=== PATIENT | female | born 2005 | race Caucasian/White ===

== ENCOUNTER 2025-02-16 12:29 | Emergency (ER) | payer OTHER, SELFPAY ==
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
[2025-02-16] MEDS: FLUORESCEIN SOD 1 MG/STRIP LEFT EYE (13:04)
[2025-02-16] MEDS: TETRACAINE HCL 0.5% OPHTH SOLN 4 ML BTL LEFT EYE (13:04)
[2025-02-16] MEDS: DACRIOSE EYE IRRIGATION 118 ML BOTTLE 30 ML LEFT EYE (13:04)
[2025-02-16 13:10] VITALS: BP 107/67; PULSE 65; RESP 16; TEMP 36.6; O2SAT 100
[2025-02-16 13:17] LABS: BEDSIDEPREGUCG Negative (Negative); EDUAAPPEAR Clear; EDUABILI 1+ (Negative); EDUABLOOD Negative (Negative); EDUACOLOR1 Amber; EDUAGLUCOSE Negative (Negative); EDUAKETONE 1+ (Negative); EDUALEUKO Negative (Negative); EDUANITRATE Negative (Negative); EDUAPH 5.5; EDUAPROTEIN 2+ (Negative); EDUAUROBILI 0.2
--- OUTSIDE RECORDS SUMMARY | 2025-02-16 14:23 | XMS_ITS | Referral Summary ---
Author Organization [facility] Medical Office Building [address] Address [address] [place] [address] Care Team Providers Care Crewman Main Battle Tank Name Role Phone No, Physician Primary Care Provider [phone] Allergies No known active allergies Medications No known medications Active Problems Problem Noted Date Diagnosed Date Screening for blood disease 05/02/2021 Irregular periods 05/02/2021 Assessment & Plan (05/02/2021 12:13 PM CDT): Condition is uncontrolled/not stable. Continue prescribed medications - risks and usage discussed, seek medical care for new or worsening symptoms. General counseling and advice on contraceptive m anagement 05/02/2021 Screening for cardiovascular condition Annual physical exam 05/02/2021 Assessment & Plan (05/02/2021 12:21 PM CDT): Normal, no abnormal findings. CMP and lipid panel to be obtained today, if applicable. Vaccinations return with vaccination records. Heart healthy diet and exercise advised. Immunizations Immunization Administration Dates Next Due DTaP 05/08/2007, 4,2003,06/28,2003 H1N1 Inj 02/28/2010 HPV, Quadrivalent 06/14/2015,04/12/2015 HPV9 04/29/2016 Hep A, Adult 10/04/2005,03/19/2005 Hep A, Pediatric 10/04/2005,03/19/2005 Hep B Vaccine 2003,2003,2003 Hep B, Adolescent or Pediatric 2003,2002 HiB 08/29/2008, 4,2003,04/18 Hib (HbOC) 05/30/2004, 3,2003,04/18 IPV 05/08/2007, 4,2003,04/18 Influenza LAIV (Nasal) 09/21/2012 Influenza, Live, Intranasal, Quadrivalent 06/14/2015 Influenza, Quadrivalent, Spl it, Preservative Free, Intramuscular 06/02/2019 Influenza, Split 08/03/2007, 6,10/04/2005,09/05,2003,2003 Influenza, Trivalent, IM (MDV) 09/21/2012,2006,10/04/2005 Influenza, Unspecified 04/08/2021(Deferr ed: Patient Refused),06/08/2020(Deferred: Patient Refused) MMR 05/08/2007,05/30/2004,02/15/2004 Meningococcal ACWY, Unspecified 02/21/2014 Meningococcal B, OMV (Bexsero) 06/02/2019,2018 Meningococcal MCV4, Unspecified 04/21/2019,02/21 Pneumococcal Conjugate 7-Valent 09/05/20 04,2003,2003,04/18 Tdap 02/21/2014 Varicella 06/16/2007,02/15/2004 Social History Tobacco Use Types Packs/Day Years Used Date Smoking Tobacco: Never Smokeless Tobacco: Never AUDIT-C Answer Date Recorded Q1: How often do you have a drink containing alc ohol? Never 05/02/2021 Average Number of Drinks Not on file 021 Q3: How often do you have si x or more drinks on one occasion? Never 05/02/2021 PHQ-2 Answer Date Recorded PHQ-2 Total Score (If total score is 3 or more points, staff should administer the PHQ-9) 0 05/02/2021 Personal Safety Answer Date Recorded Have you ever been in or are you currently in a harmful physical or emotional relationship or is someone making you feel afraid or unsafe? 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 Gender Identity Not on file Sexual Orientation Not on file Last Filed Vital Signs Vital Sign Reading Time Taken Comments Blood Pressure 105/52 05/26/2024 2:31 PM CDT Pulse 77 05/26/2024 2:31 PM CDT Temperature 36.9 C (98.4 F) 05/26/2024 2:31 PM CDT Respiratory Rate 15 05/26/2024 2:31 PM CDT Oxygen Saturation 100% 05/26/2024 2:31 PM CDT Inhaled Oxygen Concentration - - Weight 54.4 kg (120 lb) 05/26/2024 2:31 PM CDT Height 168.5 cm (5' 6.34) 05/02/2021 11:38 AM C DT Body Mass Index 19.17 05/02/2021 11:38 AM CDT Plan of Treatment Not on file Insurance [facility] Care Teams Crewman Main Battle Tank Relationship Specialty Start Date End Date No, Physician PCP - General 05/26/24
--- OUTSIDE RECORDS SUMMARY | 2025-02-16 14:23 | XMS_ITS | Clinical Summary ---
Author Organization [facility] Medical Office Building 3 Address [address] [place] [address] Care Team Providers Care Game Preserve Manager Name Role Phone No, Physician Primary Care Provider [phone] Allergies No known active allergies Medications No [...] 7-Valent 09/05/20 04,2003,2003,04/18 Tdap 02/21/2014 Varicella 06/16/2007,02/15/2004 Medical History Medical History Date Comments Irregular periods Family History Medical History Relation Name Comments No Known Problems Father Hypertension Mother Relation Name Status Comments Father Alive Mother Alive Social History Tobacco Use Types Packs/Day Years [...] on file 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 Gender Identity Not on file Sexual Orientation Not on file Obstetrics History Last Filed Vital Signs Vital Sign Reading [...] 05/02/2021 11:38 AM CDT Plan of Treatment Health Maintenance Due Date Last Done Comments Cervical Cancer Screening 2003 Chlamydia and Gonorrhea (GC/ CT) Screening 2003 Hepatitis C Screening 2003 Depression Screening 05/02/2022 05/02/2021 Regular Well Visit/Exam 18-64 05/02/2022 05/02/2021 DTaP/Tdap/Td Vaccine (7 - Td or Tdap) 02/22/2024 02/21/2014, 05/08/2007, 05/30/2004, Additional history exists Influenza Vaccine (Season Ended) 2025 06/02/2019, 06/14/2015, 09/21/2012, Additional history exists Hepatitis B Screening Completed 2003 , 2003, 2003, Additional history exists Pneumococcal vaccine <65 Completed 004, 2003, 2003, Additional history exists Varicella Vaccines Completed 06/16/2007, 02/15/2004 HPV Vaccines Completed 04/29/2016, 03/2015, 04/12/2015 Meningococcal B Vaccine Completed 06/02/2019, 04/21 Insurance [facility] [place]ACS [id number] Care Teams Game Preserve Manager Relationship Specialty Start Date End Date No, Physician PCP - General 05/26/24
--- NOTE | 2025-02-16 14:46 | PC.NURSE ---
NO UC ORDERED PER PROVIDER
== END 2025-02-16 13:49 | disposition short-term general hospital (02) ==
PROVIDERS: Emergency Provider Nurse Practitioner Family
DX: S05.92XA Unspecified injury of left eye and orbit, initial encounter (principal); W39.XXXA Discharge of firework, initial encounter
CPT/HCPCS: 81003; 81025; 99203; A9270; G0463

== ENCOUNTER 2025-05-03 14:01 | Emergency (ER) | payer OTHER, SELFPAY ==
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
--- OUTSIDE RECORDS SUMMARY | 2025-05-03 14:04 | XMS_ITS | Clinical Summary ---
Author Organization [facility] Address [address] [place] [address] Care Team Providers Care Classification Officer Name Role Phone Unavailable Primary Care Provider Unavailabl e Source Comments [facility],non-owned Affiliates and Associated Physician Practices is amultiple site organization consisting of ambulatory clinics and hospital sitesin [place], [place], [place]. This disclosure is being madepursuant to the Care Everywhere program and may not contain all information available regarding this patient. Last updated 18.[facility] Allergies No known active allergies Medications * Be aware that medications may not be up to date on this document. Alwaysverify current medications with the patient. ibuprofen (ADVIL; MOTRIN) 100 MG/5ML SUSP suspension Take 10 mL by mouth every 6 hours as needed for Pain and Fever. 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 Gender Identity Female 03/11/2022 11:28 PM CDT Sexual Orientation Not on file Last Filed Vital Signs Vital Sign Reading Time Taken Comments Blood Pressure 118/79 03/11/2022 10:45 PM CDT Pulse 99 03/11/2022 10:45 PM CDT Temperature 36.1 C (97 F) 03/11/2022 9:58 PM CDT Respiratory Rate 15 03/11/2022 10:45 PM CDT Oxygen Saturation 97% 03/11/2022 10:45 PM CDT Inhaled Oxygen Concentration - - Weight 59 kg (130 lb) 03/11/2022 9:58 PM CDT Height 170.2 cm (5' 7) 03/11/2022 9:58 PM CDT Body Mass Index 20.36 03/11/2022 9:58 PM CDT Plan of Treatment Health Maintenance Due Date Last Done Comments HIV SCREENING 2018 HPV VACCINE (1 - 3-dose series) 2018 CHLAMYDIA/GONORRHEA SCREENING 2019 MENINGOCOCCAL (Group B) VACCINE SHARED DECISION-MAKING (1 of 2 - Standard) 2019 HEPATITIS C SCREENING 02/09/2021 DTAP/TDAP/TD VACCINES (1 - Tdap) 2022 HEPATITIS B VACCINE (1 of 3 - 19+ 3-dose series) 2022 COVID-19 VACCINE (1 - season) 2024 DEPRESSION SCREENING 09/08/2024 INFLUENZA VACCINE (#1) 2025 9, 06/14/2015, 09/21/2012, Additional history exists ZOSTER VACCINE (1 of 2) 2053 HIB VACCINE Aged Out No longer eligi ble based on patient's age to complete this topic MENINGOCOCCAL GROUPS A/C/Y/W VACCINE Aged Out No longer eligible based on patient's age to complete this topic PNEUMOCOCCAL VACCINE Aged Out No long er eligible based on patient's age to complete this topic
[2025-05-03 14:10] VITALS: BP 119/77; PULSE 83; RESP 18; TEMP 36.1; O2SAT 99
[2025-05-03 15:05] LABS: BEDSIDEPREGUCG Negative (Negative)
[2025-05-03 15:06] LABS: EDUAAPPEAR Clear; EDUABILI Negative (Negative); EDUABLOOD Negative (Negative); EDUACOLOR1 Yellow; EDUAGLUCOSE Negative (Negative); EDUAKETONE Negative (Negative); EDUALEUKO Trace (Negative); EDUANITRATE Negative (Negative); EDUAPH 7.5; EDUAPROTEIN 1+ (Negative); EDUASPGRAVITY 1.020; EDUAUROBILI 0.2
--- NOTE | 2025-05-03 15:21 | ED_ITS ---
HPI - General Adult General Chief complaint: Urogenital-Female Stated complaint: STD Exposure Source: patient Mode of arrival: ambulatory Limitations: no limitations History of Present Illness HPI narrative: Patient presents for potential exposure to gonorrhea. One of her male sex partners was having urethral discharge went to the emergency department yesterday. Today he got a call that his gonorrhea test was positive. Patient denies any vaginal discharge/bleeding, urinary symptoms, abdominal pain, low back pain. Recently she has been sexually active with 2 male partners, sometimes using condoms. She is not on contraception. LMP 04/11/25. Related Data Allergies Allergy/AdvReac Type Severity Reaction Status Date / Time No Known Allergies Allergy Verified 05/03/25 14:09 Review of Systems Review of Systems: CONSTITUTIONAL: Denies fever, chills, or sweats. EYES: Denies visual changes, redness, or discharge. ENT: Denies rhinorrhea, congestion, sore throat, or otalgia. CARDIOVASCULAR: Denies chest pain, palpitations, or edema. RESPIRATORY: Denies cough or dyspnea. GASTROINTESTINAL: Denies abdominal pain, nausea, vomiting, or diarrhea. GENITOURINARY: Denies dysuria or hematuria. SKIN: Denies rash or itching. MUSCULOSKELETAL: Denies back pain, joint pain, or myalgia. NEUROLOGIC: Denies headache, numbness, dizziness, or weakness. PSYCHIATRIC: Denies anxiety or depression. PMFSH Past Medical History Medical History No pertinent past medical history Surgical History Surgical History No pertinent past surgical history Family History Family History Mother Family history unknown Social History Social History Gender identity (if verbalized by the patient): Female Sexual Orientation (if Verbalized by the Patient): Straight or Heterosexual Spiritual care concerns: No Exam Narrative: GENERAL: Well-appearing, well-nourished, and in no acute distress. HEAD: Normocephalic, atraumatic. EYES: PERRLA and EOMI. ENT: Nares clear, no rhinorrhea or epistaxis. Mucous membranes moist. Oropharynx without tonsillar hypertrophy exudate or other lesions. Bilateral TMs pearly stuart nonbulging NECK: Supple. No adenopathy or masses. No carotid bruits or JVD CHEST: Clear to auscultation. No respiratory distress. No wheezes rales or rhonchi HEART: Regular rate and rhythm. No murmur heard. Normal peripheral pulses. ABDOMEN: Soft, nontender, nondistended, normal active bowel sounds. EXTREMITIES: Normal range of motion. No edema. SKIN: Warm, dry, no rash. NEURO: No focal deficits. Alert and oriented x3. PSYCH: Normal mood and affect. Course Course Emergency Course: This is a 20-year-old female who presented for evaluation after potential gonorrhea exposure. Pharyngeal and urine samples were obtained for gonorrhea and chlamydia as well as urine for Trichomonas. Her was negative. She elected to be apparently treated for gonorrhea, chlamydia, Trichomonas. She was given Rocephin and Flagyl while here. Will discharge with doxycycline. Advised to remain sexually abstinent for additional week after both she and sex partners complete their antibiotic therapy. She should have comprehensive STI testing performed. She should go to the emergency department for any decline in condition. Patient in agreement with plan of care. Level of Care: Express Care Visit Vital Signs Vital signs: Vital Signs Temperature 36.1 C L 05/03/25 14:10 Pulse Rate 83 05/03/25 14:10 Respiratory Rate 18 05/03/25 14:10 Blood Pressure 119/77 05/03/25 14:10 Pulse Oximetry 99 05/03/25 14:10 Oxygen Delivery Room Air 05/03/25 14:10 Temperature 36.1 C L 05/03/25 14:10 Pulse Rate 83 05/03/25 14:10 Respiratory Rate 18 05/03/25 14:10 Blood Pressure 119/77 05/03/25 14:10 Pulse Oximetry 99 05/03/25 14:10 Oxygen Delivery Room Air 05/03/25 14:10 Medical Decision Making Vital Signs Vital Signs: Vital Signs Temperature 36.1 C L 05/03/25 14:10 Pulse Rate 83 05/03/25 14:10 Respiratory Rate 18 05/03/25 14:10 Blood Pressure 119/77 05/03/25 14:10 Pulse Oximetry 99 08/26/25 14:10 Oxygen Delivery Room Air 05/03/25 14:10 Temperature 36.1 C L 05/03/25 14:10 Pulse Rate 83 05/03/25 14:10 Respiratory Rate 18 05/03/25 14:10 Blood Pressure 119/77 05/03/25 14:10 Pulse Oximetry 99 05/03/25 14:10 Oxygen Delivery Room Air 05/03/25 14:10 Lab Data Labs: Lab Results 05/03/25 05/03/25 Range/Units 15:02 15:03 POC Urine Color Yellow POC Urine Clarity Clear POC Urine pH 7.5 POC Ur Specif [place] 1.020 POC Urine Protein 1+ (Negative) POC Ur Glucose (UA) Negative (Negative) POC Urine Ketones Negative (Negative) POC Urine Blood Negative (Negative) POC Urine Nitrite Negative (Negative) POC Urine Bilirubin Negative (Negative) POC Urine Urobilinogen 0.2 POC U Leukocyte Esteras Trace (Negative) POC Urine HCG, Qual Negative (Negative) Discharge Plan Discharge Clinical Impression: Exposure to sexually transmitted infection Patient Disposition: Home Condition: Stable Instructions: Antibiotic Form, Sexually Transmitted Diseases (ED), Safe Sex Practices (ED) Additional Instructions: Please abstain from sexual activity until 7 days following completion of antibiotic therapy for you and partner(s) Please have comprehensive STI testing performed. Patient Language: [place] Citizen Prescriptions: New doxycycline hyclate 100 mg capsule 100 mg PO DAILY Qty: 14 0RF Follow-up/Referrals: Smooth Marquis MD [Physician, Family Practice] Time of Disposition: 15:16
[2025-05-03] MEDS: cefTRIAXone 500 MG, LIDOCAINE 1% LOCAL INJ 1 ML IM (15:42)
[2025-05-03 20:22] LABS: Trichomonas Vag PCR NOT DETECTED (NOT DETECTE)
== END 2025-05-03 16:04 | disposition home or self-care (01) ==
PROVIDERS: Emergency Provider Nurse Practitioner
DX: Z20.2 Contact with and (suspected) exposure to infections with a predominantly sexual mode of transmission (principal)
CPT/HCPCS: 81003; 81025; 87086; 87491; 87591; 87661; 96372; 99213; A9270; G0463; J0696; J2003